=== PATIENT | male | born 1980 | race Caucasian/White ===

== ENCOUNTER 2018-01-21 11:22 | Emergency (ER) | payer BC ==
[~2018-01-21] VITALS: Ht 182.9 cm; Wt 106.9 kg
[~2018-01-21 11:22] MED LIST: ANTIVERT25 MG PO; ASPIRIN325 MG PO
[2018-01-21 12:26] LABS: HEMATOCRIT 42.8 % (38.0-50.0); HEMOGLOBIN 15.6 G/DL (12.5-16.6); MCH 30.8 PG (29.0-34.0); MCHC 36.4 G/DL (30.0-36.0); MCV 84.4 FL (86-99); PLATELET COUNT 247 K/uL (156-360); RBC DIS.WIDTH-CV 12.3 % (11.8-14.6); RBC DIS.WIDTH-SD 37.2 % (39-53); RED BLOOD COUNT 5.07 M/uL (4.00-5.50); WHITE BLOOD COUNT 6.3 K/uL (4.1-10.2)
[2018-01-21 12:37] LABS: CHLORIDE 108 mEq/L (99-109); POTASSIUM 3.9 mEq/L (3.7-5.4); SODIUM 144 mEq/L (136-147)
[2018-01-21 12:39] LABS: GLUCOSE 84 mg/dL (70-99)
[2018-01-21 12:43] LABS: GFR ESTIMATE (CALCULATED) > 59 mL/min/ (58.99-99999)
[2018-01-21 12:44] LABS: UREA NITROGEN (BUN) 16 mg/dL (9-23)
[2018-01-21 12:50] LABS: TROP-I INTERPRETATION NEGATIVE; TROPONIN-I < 0.01 ng/mL (0.0-0.30)
[2018-01-21 13:50] LABS: APPEARANCE CLEAR ((CLEAR)); BILIRUBIN NEGATIVE; BLOOD NEGATIVE; COLOR YELLOW ((YELLOW)); GLUCOSE (STRIP) NEGATIVE; KETONES NEGATIVE; LEUKOCYTES NEGATIVE; NITRITE NEGATIVE; PROTEIN (STRIP) NEGATIVE; SPECIFIC GRAVITY 1.026 (1.000-1.030); UCUL ADDED? NO; UROBILINOGEN 0.2 MG/DL (0.2-1.0)
[2018-01-21] MEDS ORDERED: BENICAR HCT 201 EACH PO (15:47)
[2018-01-21 15:59] LABS: TROP-I INTERPRETATION NEGATIVE; TROPONIN-I < 0.01 ng/mL (0.0-0.30)
[2018-01-21 16:10] VITALS: BP 127/78
== END 2018-01-21 16:11 | disposition home or self-care (01) ==
LOC: EME 11:22
PROVIDERS: Physician Assistant
DX: I10 Essential (primary) hypertension (principal); R06.02 Shortness of breath; Z86.73 Personal history of transient ischemic attack (TIA), and cerebral infarction without residual deficits; K58.9 Irritable bowel syndrome, unspecified
CPT/HCPCS: 71046; 80048; 81003; 84484; 85027; 93005; 99281; 99285